=== PATIENT | female | born 1960 | race Caucasian/White ===

== ENCOUNTER 2021-08-13 17:30 | Emergency (ER) | payer BC, OTHER ==
[2021-08-13] MEDS ORDERED: predniSONE 20 MG TAB ONE (20:55)
[2021-08-14 15:24] LABS: SARS-CoV-2 PCR by NAA Not Detected (NotDetected)
== END 2021-08-13 21:33 | disposition home or self-care (01) ==
LOC: MADERS 17:30
DX: J06.9 Acute upper respiratory infection, unspecified (principal); Z20.822 Contact with and (suspected) exposure to COVID-19; I10 Essential (primary) hypertension; F17.210 Nicotine dependence, cigarettes, uncomplicated; Z79.899 Other long term (current) drug therapy
CPT/HCPCS: 71045; J7512; J7620; U0003; U0005